=== PATIENT | male | born 1945 | race Caucasian/White ===

== ENCOUNTER → 2016-11-01 | Outpatient (CLI) | payer OTHER, BC ==
[~2016-11-01] MED LIST: ASPIR 8181 M1 PO; ASPIRIN EC81 M1 PO; LISINOPRIL40 MG PO; MECLIZINE HCL12.5 MG PO; NORVASC10 MG PO; PRINIVIL20 MG PO
== END ==
LOC: CAT 10:07
DX: J32.0 Chronic maxillary sinusitis (principal); J34.2 Deviated nasal septum

== ENCOUNTER 2016-11-12 05:32 | Day surgery (SDC) | payer OTHER, BC ==
[~2016-11-12] VITALS: Ht 172.7 cm; Wt 127.0 kg
--- NOTE | ~2016-11-12 | EKG ---
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
--- NOTE | ~2016-11-12 | H ---
[facility] [place] [address] HISTORY AND PHYSICAL Name: JENNIFER DOE Room #: 150-3 [facility]#: [id number] Admission: 11/12/16 Attend Phys: Santo Cool MD Discharge: Date of : 45 Report #: [id number] THIS REPORT FOR: //name// CC: ARTURO physician/PCP Santo Cool DATE OF SERVICE: 11/12/2016 CHIEF COMPLAINT: Rhinosinusitis. HISTORY OF PRESENT ILLNESS: The patient is a 71-year-old gentleman originally seen back last April, at which time, he had had a longstanding history of generalized fatigue and facial congestion and obstruction. He had been treated at that time with several weeks of antibiotics without any improvement. I then placed him on 20 days of Ceftin here along with a followup CT scan. On completion of the antibiotic therapy, the CT scan still demonstrated continued left maxillary sinusitis. The patient was at that point did not wish to pursue any further therapy. He was continued on Augmentin and saline lavage during the time gone. The patient returned in October of this year with continued sinus blockage and fatigue from last year. He really did not notice any specific change in his symptoms during that timeline. At this point, he is more interested in the surgical arm of therapy than the medical arm of therapy. After discussion, he was placed back on medication. A repeat CT scan was performed, which did not show a substantial change in the appearance of the CT scan. After discussion with the patient, he wishes to proceed forward, so at this time, we will plan for a left maxillary antrostomy for tissue removal, left alok bullosa excision as well. Surgical risks and benefits have been reviewed with the patient as well as the medical alternatives. ALLERGIES TO MEDICATION: Include CODEINE PHOSPHATE. MEDICATIONS ON ADMISSION: Lisinopril, Norvasc and Nasacort nasal steroid spray. PAST MEDICAL AND SURGICAL HISTORY: Noted for essential hypertension. SOCIAL HISTORY: He is a nonsmoker, nondrinker. FAMILY HISTORY: Noncontributory. REVIEW OF SYSTEMS: Negative at this time for any persistent cardiovascular, pulmonary or hematopoietic issues. PHYSICAL EXAMINATION: GENERAL: Gentleman who appears his stated age. VITAL SIGNS: Height of 5 feet, weight of 280 pounds, last blood pressure 144/80. [address] [address] HISTORY AND PHYSICAL Name: JENNIFER DOE Room #: 150-3 [facility] M..#: [id number] Admission: 11/12/16 Attend Phys: Santo Cool MD Discharge: Date of : 45 Report #: [id number] HEENT: Shows a slightly gentleman who appears his stated age. Examination of the oral cavity and oropharynx was unremarkable. Nasal examination demonstrated some mild turbinate hypertrophy with a non-deformed septum. CHEST: Clear to auscultation. CARDIOVASCULAR: Regular rate, regular rhythm. ASSESSMENT: History of rhinosinusitis. PLAN: Will be for surgical treatment as mentioned above. <ELECTRONICALLY SIGNED> By: Santo Cool MD 11/12/16 0730 [id number] [id number] Santo Cool MD /nt
--- NOTE | ~2016-11-12 | O ---
[facility] [place] [address] OPERATIVE REPORT Name: JENNIFER DOE Room #: DEP [facility]..#: [id number] Admission: 11/12/16 Attend Phys: Santo Cool MD Discharge: 11/12/16 Date of : 45 Report #: [id number] THIS REPORT FOR: //name// CC: ARTURO physician/PCP Santo Cool DATE OF SERVICE: 11/12/2016 PREOPERATIVE DIAGNOSIS: Left maxillary sinusitis. POSTOPERATIVE DIAGNOSIS: Left maxillary fungal sinusitis. SURGEON: Santo Cool M.D. ANESTHESIA: General LMA. PROCEDURE: Left endoscopic nasal antral window with content removal of left middle turbinate alok bullosa excision. FINDINGS: Large left alok bullosa was noted blocking the entrance to the maxillary ostia. Large amount of mycotic debris was noted within the maxillary sinus itself. Mild cobblestoning of the mucosa was noted. TECHNIQUE: After obtaining consent, he was brought to the operating suite. Appropriate time-out was performed. General LMA anesthesia was obtained. The bed was turned to 90 degrees. Nose was prepped and draped in the usual sterile fashion. A 3 mL of 1% Xylocaine 1:100,000 epinephrine was injected on the anterior face of the left middle turbinate in the lateral nasal wall. Using a 0-degree scope, the left nasal cavity was intubated. The alok bullosa was easily visualized and was divided in half with a sickle knife and then using endoscopic scissors and Luis-Cut forceps, the lateral aspect of the alok bullosa was removed. Edges were trimmed with the microdebrider. The uncinate process was brought forth with a double ball and removed with a combination of a microdebrider and the side biter. Using the double ball, I was able to find the natural entrance into the maxillary ostia and this was enlarged inferiorly, anteriorly and posteriorly with a side biter and the 0-degree Luis-Cut forceps. Upon enlarging this and cleaning the mucosal edges with the microdebrider, it was apparent there was a large amount of thick gqmzx-cz-mfhma colored mycotic debris present within the sinus cavity. This was removed in piecemeal fashion with the use of different sections, giraffe forceps and irrigation. Using a 70-degree scope, we were able to check to make sure the sinus was relatively clear. There was a very tiny amount left behind in the very dependent portion of the maxillary sinus that was not easily reached with any instrumentation and despite flushing, it remained intact. At that point, having met the main goal of surgery, a piece of PosiSep was placed between the alok bullosa free edge [address] [address] OPERATIVE REPORT Name: DOEJENNIFER Room #: DEP [facility] Gissell#: [id number] Admission: 11/12/16 Attend Phys: Santo Cool MD Discharge: 11/12/16 Date of : 45 Report #: [id number] and the lateral nasal wall and inflated with saline. He was taken to the recovery room in stable condition. ESTIMATED BLOOD LOSS: 10 mL. By: 1133 1229 Santo Cool MD /nt
--- NOTE | ~2016-11-12 | S ---
[facility] [address] [place] [address] SURGICAL PATH RPT PROCEDURE Name: MALIKA DOE Room #: DEP [facility]..#: [id number] Admission: 11/12/16 Date of : 45 Discharge: 11/12/16 Report #: [id number] Path Case #: [id number] PATHOLOGY REPORT COLLECTION DATE: 11/12/2016 RECEIVED DATE: 11/12/2016 SUBMITTING PHYS: Dr. Santo Cool OTHER PHYS: ADDENDUM REPORT (Order Date: 11/17/2016 09:06) ADDENDUM COMMENT: A properly controlled special stain is performed. GMS (block A1) stains the fungal hyphal elements within the mycotic debris. The final diagnosis remains unchanged. Professional services performed by [facility] at [facility] [address] [place] [address] Technical services performed by [facility] at [address] [place] [address], [address] [place] [address]. ELECTRONICALLY SIGNED BY: Hannah Gates M.D. DATE/TIME:11/17/2016 11:23 SPECIMEN(S) RECEIVED: A.Left sinus contents * * * * * * * * * * * * FINAL DIAGNOSIS: "Left sinus contents", evacuation: - Allergic fungal sinusitis with focal mild eosinophilia. - Decalcified bony fragments with reactive changes. - Abundant aggregates of fungal elements consistent with mycotic debris. (See comment) COMMENT: The properly controlled special stain is performed. GMS (block A1) - pending. Clinical and surgical correlation is recommended. PATHOLOGIST: Hannah Gates M.D. REPORT ELECTRONICALLY SIGNED BY: Hannah Gates M.D. DATE/TIME: 11/16/2016 22:21 * * * * * * * * * * * * [facility] [place] [address] SURGICAL PATH RPT PROCEDURE Name: MALIKA DOE Room #: DEP [facility] Gissell#: [id number] Admission: 11/12/16 Date of : 45 Discharge: 11/12/16 Report #: [id number] Path Case #: [id number] GROSS PATHOLOGY: Received in formalin labeled "Malika Doe, left sinus contents," is a 3.1 x 3.0 x 0.6 cm aggregate of multiple fragments of daugherty membranous tissue admixed with small fragments of bone. Toll Line Mechanic tissue is submitted in cassette A1, following decalcification. (KAH; 11/15/2016) CLINICAL HISTORY: Chronic maxillary sinusitis INITIAL CPT CODE(S): A; 45568, 65957, 02991 Professional services performed by [facility] at [address] , [place] [address] Technical services performed by [facility] at [address] [place] [address], [facility] [address] [address]. [facility] [address] [address] PHONE: [phone] DIRECTOR: Cirilo W. Shelly, M.D. * * * END OF REPORT * * *
[~2016-11-12 05:32] MED LIST changes: +CENTRUM SILVER1 EAC2 PO
[2016-11-12 10:11] VITALS: BP 144/58
[2016-11-12 11:52] VITALS: BP 144/58
== END 2016-11-12 12:37 | disposition home or self-care (01) ==
LOC: OR 05:32 → TBA 05:32 → OR 12:37
DX: J01.00 Acute maxillary sinusitis, unspecified (principal); D72.1 Eosinophilia; I10 Essential (primary) hypertension; G47.33 Obstructive sleep apnea (adult) (pediatric)
CPT/HCPCS: 50010; 50101; 50386; 50398; 50426; 53336; 56635; 62110; 62900; 70005